=== PATIENT | female | born 1975 | race Caucasian/White ===

== ENCOUNTER 2016-10-12 18:20 | Emergency (ER) | payer MEDICARE, MEDICAID ==
[2016-10-12 18:33] VITALS: TEMP 98.1; O2SAT 97
[2016-10-12] MEDS ORDERED: predniSONE 20 MG TAB PO ONE (18:39)
[2016-10-12] MEDS ORDERED: KETOROLAC TROMETHAMINE INJ 30 MG/ML VIAL IM ONE (18:39)
--- NOTE | 2016-10-12 18:42 | ED.PDOC ---
History of Present Illness - General Chief Complaint: Headache Stated Complaint: headache Time Seen by Provider: 10/12/16 18:28 Source: patient Exam Limitations: no limitations - History of Present Illness Initial Comments: the patient is a 40-year-old female presenting to the emergency room secondary to headache primarily to the right side of her scalp and neck pain to the left side posteriorly extending down her trapezius muscle towards her left shoulder. Neither of these complaints are new. She has seen her primary care doctors and neurology for workup of them. She states that she does have a pinched nerve on the left there. She has Flexeril but has not taken it. She does have chronic daily headaches and takes Topamax. This headache seems more like a tension headache than her chronic migraines. No fevers. No altered mental status. No focal neurological changes. No problems with gait or strength or sensation. Timing/Duration: 24 hours Severity: moderate Improving Factors: other - massage Worsening Factors: nothing Associated Symptoms: headaches Allergies/Adverse Reactions: Allergies Meperidine [From Demerol HCl] Allergy (Unknown, Verified 12/11/15 04:03) cant take due to heartrate Chlorpheniramine [From Decongest] Adverse Reaction (Verified 12/11/15 04:03) Phenylpropanolamine [From Decongest] Adverse Reaction (Verified 12/11/15 04:03) narcotics Adverse Reaction (Uncoded 09/25/14 10:28) Other causes anxiety/panic attack Home Medications: Ambulatory Orders Cetirizine HCl [Zyrtec] 10 mg PO BEDTIME 04/29/14 Symbicort 160-4.5 Mcg/Act 2 puff INH BID 09/03/15 Albuterol Inhaler [Ventolin Hfa Inhaler] 108 mcg IN PRN 04/13/16 Fluticasone Propionate (Nasal) [Eql Fluticasone Propionat] 50 mcg NA DAILY 04/13 Levothyroxine Sodium [Synthroid] 0.112 mg PO 0700 04/13/16 Topiramate [Topamax] 50 mg PO DAILY 10/12/16 predniSONE [Prednisone] 20 mg PO DAILY #3 tab 10/12/16 Review of Systems - Review of Systems Constitutional: States: no symptoms reported EENTM: States: no symptoms reported Respiratory: States: no symptoms reported Cardiology: States: no symptoms reported Gastrointestinal/Abdominal: States: no symptoms reported Genitourinary: States: no symptoms reported Musculoskeletal: States: back pain, neck pain Skin: States: no symptoms reported Neurological: States: headache Endocrine: States: no symptoms reported All other Systems: No Change from Baseline Past Medical History (General) - Patient Medical History Hx Seizures: No Hx Stroke: No Hx Dementia: No Hx Asthma: No Hx of COPD: No Hx Cardiac Disorders: Yes Hx Congestive Heart Failure: No Hx Pacemaker: No Hx Hypertension: No Hx Thyroid Disease: Yes Hx Diabetes: No Hx Gastroesophageal Reflux: No Hx Renal Disease: No Hx Cancer: No Hx of HIV: No Hx Hepatitis C: No Hx MRSA: No - Vaccination History Hx Tetanus, Diphtheria Vaccination: No Hx Influenza Vaccination: No Hx Pneumococcal Vaccination: No - Social History Hx Tobacco Use: Yes - quit 2 years ago Hx Chewing Tobacco Use: No Hx Alcohol Use: No Hx Substance Use: No Hx Substance Use Treatment: No Hx Depression: No Hx Physical Abuse: No Hx Emotional Abuse: No Hx Suspected Abuse: No - Female History Patient is a Female of Child Bearing Age (10 -59 yrs old): Yes Patient : No - Triage Comment ED Triage Comment: has IUD Family Medical History - Family History Mother Living Status: Still Living Hx Family Hypertension: Yes Hx Family Cancer: Yes - breast Physical Exam - Physical Exam General Appearance: Alert, Comfortable, No apparent distress Eye Exam: bilateral normal Ears, Nose, Throat: normal ENT inspection, normal pharynx Neck: full range of motion, supple, other - the patient has diffuse muscle spasm and discomfort to palpation along the left side of her paraspinal muscles of the cervical spine. He does extend down the trapezius. There is no gross deformity. No bruising. range of motion is full. Respiratory: chest non-tender, lungs clear, normal breath sounds, no respiratory distress, no accessory muscle use Cardiovascular/Chest: normal peripheral pulses, regular rate, rhythm, no edema Peripheral Pulses: radial,right: 2+, radial,left: 2+, dorsalis pedis,right: 2+, dorsalis pedis,left: 2+ Gastrointestinal/Abdominal: non tender, soft Rectal Exam: deferred Back Exam: normal inspection Extremity: normal range of motion, non-tender, normal inspection, no pedal edema , normal capillary refill Neurologic: alert, normal mood/affect, oriented x 3, other - the right side of her scalp is diffusely uncomfortable to palpation. This is not just over the temporal arteries. There is no deformity or bruising. Skin Exam: normal color Comments: Vital Signs - 24 hr 10/12/16 18:29 Temperature 98.1 F Pulse Rate [ 92 H left arm] Respiratory 18 Rate Blood Pressure 184/80 [Left Arm] O2 Sat by Pulse 97 Oximetry Progress - Progress Progress: 10/12/16 18:43 the patient is a 40-year-old female presenting to the emergency room secondary to cervical myofascial syndrome as well as a tension headache. Blood pressure is moderately elevated likely reactive to pain. She does need to follow this at home over the coming weeks. She was given a dose of Toradol and oral prednisone here. When she gets home she needs to start taking her Flexeril. She needs to do stretches for her neck to reduce spasm. Topical heat and rub on agents such as icy hot and Biofreeze may help reduce discomfort as well. She needs to keep follow-up with her primary care doctor and neurologist. CT scan of the brain with contrast has been done in the past year already. She needs to bring a diary of her blood pressures into her primary care doctor for follow-up. return to the emergency room for acute worsening otherwise. She will be written for 3 days of oral prednisone as an outpatient. Departure - Departure Clinical Impression: Tension headache, Myofascial pain syndrome, cervical, Reactive hypertension Disposition: Discharge to Home or Self Care Condition: Fair Departure Forms: ED Discharge - Pt. Copy, Patient Portal Self Enrollment Instructions: DI for Myofascial Pain Syndrome, DI for Hormonal and Tension Headaches, High Blood Pressure Diet: low salt diet Activity: increase activity as tolerated Referrals: Fani Gallegos NP [Primary Care Provider] - 1-2 Weeks Prescriptions: predniSONE [Prednisone] 20 mg PO DAILY #3 tab Home Medications: Ambulatory Orders Cetirizine HCl [Zyrtec] 10 mg PO BEDTIME 04/29/14 Symbicort 160-4.5 Mcg/Act 2 puff INH BID 09/03/15 Albuterol Inhaler [Ventolin Hfa Inhaler] 108 mcg IN PRN 04/13/16 Fluticasone Propionate (Nasal) [Eql Fluticasone Propionat] 50 mcg NA DAILY 04/13 Levothyroxine Sodium [Synthroid] 0.112 mg PO 0700 04/13/16 Topiramate [Topamax] 50 mg PO DAILY 10/12/16 predniSONE [Prednisone] 20 mg PO DAILY #3 tab 10/12/16 Additional Instructions: the patient is a 40-year-old female presenting to the emergency room secondary to cervical myofascial syndrome as well as a tension headache. Blood pressure is moderately elevated likely reactive to pain. She does need to follow this at home over the coming weeks. She was given a dose of Toradol and oral prednisone here. When she gets home she needs to start taking her Flexeril. She needs to do stretches for her neck to reduce spasm. Topical heat and rub on agents such as icy hot and Biofreeze may help reduce discomfort as well. She needs to keep follow-up with her primary care doctor and neurologist. CT scan of the brain with contrast has been done in the past year already. She needs to bring a diary of her blood pressures into her primary care doctor for follow-up. return to the emergency room for acute worsening otherwise. She will be written for 3 days of oral prednisone as an outpatient.
[2016-10-12] MEDS ORDERED: PROMETHAZINE HCL 25 MG TAB PO ONE (18:55)
[2016-10-12] MEDS ORDERED: ACETAMINOPHEN-CAFF-BUTALBITAL 1 EA TAB PO SCH (19:00)
[2016-10-12 19:25] VITALS: BP 151/88
== END 2016-10-12 19:25 | disposition home or self-care (01) ==
LOC: ER 18:20
DX: G44.209 Tension-type headache, unspecified, not intractable (principal); I10 Essential (primary) hypertension; M79.1 Myalgia; Z79.899 Other long term (current) drug therapy; Z87.891 Personal history of nicotine dependence
CPT/HCPCS: J1885; J7512; Q0169

== ENCOUNTER → 2016-10-17 | Outpatient (CLI) | payer MEDICARE, MEDICAID ==
--- NOTE | 2016-10-17 14:37 | RAD ---
EXAM DESCRIPTION: Facial bone series. CLINICAL HISTORY: Facial pain status post trauma. COMPARISON: None. TECHNIQUE: 3 views were obtained and submitted for evaluation. FINDINGS: There is no fracture, dislocation, suspicious bone lesion, or radiopaque foreign body. The orbits are intact. The paranasal sinuses are well aerated. Sella appears unenlarged. Please note that CT offers a more sensitive imaging evaluation of the face. IMPRESSION: If there is clinical suspicion of a facial fracture CT is suggested. No gross abnormality on today's study. Electronically signed by: Rahat Hale MD 10/17/2016 14:35
== END ==
LOC: YCFC.O 13:08
PROVIDERS: ATTEND Nurse Practitioner Family
DX: J32.9 Chronic sinusitis, unspecified (principal)

== ENCOUNTER → 2016-11-09 | Outpatient (CLI) | payer MEDICARE, MEDICAID | LOC: YCFC.O 16:55 | PROVIDERS: ATTEND Nurse Practitioner Family | DX: E55.9 Vitamin D deficiency, unspecified (principal) ==

== ENCOUNTER 2016-12-18 22:24 | Emergency (ER) | payer MEDICARE, MEDICAID ==
[2016-12-18 22:42] VITALS: BP 152/81; TEMP 97.8
[2016-12-18] MEDS ORDERED: KETOROLAC TROMETHAMINE INJ 30 MG/ML VIAL IM ONE (22:48)
[2016-12-18] MEDS ORDERED: PROMETHAZINE HCL 25 MG TAB PO ONE (22:49)
--- NOTE | 2016-12-18 22:51 | ED.PDOC ---
History of Present Illness - General Chief Complaint: Headache Stated Complaint: headache Time Seen by Provider: 12/18/16 22:34 Source: patient Exam Limitations: no limitations - History of Present Illness Initial Comments: the patient is a 41-year-old female presenting secondary to recurrent headache. The patient has a history of recurrent migraine and tension-type headaches. She has had this latest headache for approximately 16 hours. No nausea or vomiting. She does have mild phono and photophobia. Headache is described as a tension band type headache starting at the occipital area wrapping around to the frontal area. No vision changes. No other neurological changes. No vomiting. Her routine [id number] medications have not helped. Previously in the past she has tolerated Toradol and Phenergan well to abort these headaches. This headache contains no new symptomatology. She does have routine follow-up for her headaches with neurology and her primary care doctor. Timing/Duration: 24 hours Quality: moderate, constant, pressure, throbbing Head Injury Location: frontal, occipital Recent Head Trauma: no recent headache/trauma, chronic headaches Improving Factors: medication Worsening Factors: other Associated Symptoms: fatigue Allergies/Adverse Reactions: Allergies Meperidine [From Demerol HCl] Allergy (Unknown, Verified 12/11/15 04:03) cant take due to heartrate Chlorpheniramine [From Decongest] Adverse Reaction (Verified 12/11/15 04:03) Phenylpropanolamine [From Decongest] Adverse Reaction (Verified 12/11/15 04:03) narcotics Adverse Reaction (Uncoded 09/25/14 10:28) Other causes anxiety/panic attack Home Medications: Ambulatory Orders Cetirizine HCl [Zyrtec] 10 mg PO BEDTIME 04/29/14 Symbicort 160-4.5 Mcg/Act 2 puff INH BID 09/03/15 Albuterol Inhaler [Ventolin Hfa Inhaler] 108 mcg IN PRN 04/13/16 Fluticasone Propionate (Nasal) [Eql Fluticasone Propionat] 50 mcg NA DAILY 04/13 Levothyroxine Sodium [Synthroid] 0.112 mg PO 0700 04/13/16 Topiramate [Topamax] 50 mg PO DAILY 10/12/16 Cyclobenzaprine HCl [Flexeril] 5 mg PO 12/18/16 Review of Systems - Review of Systems Constitutional: States: malaise EENTM: States: no symptoms reported Respiratory: States: no symptoms reported Cardiology: States: no symptoms reported Gastrointestinal/Abdominal: States: no symptoms reported Genitourinary: States: no symptoms reported Musculoskeletal: States: no symptoms reported Skin: States: no symptoms reported Neurological: States: headache Endocrine: States: no symptoms reported All other Systems: No Change from Baseline Past Medical History (General) - Patient Medical History Hx Seizures: No Hx Stroke: No Hx Dementia: No Hx Asthma: Yes Hx of COPD: No Hx Cardiac Disorders: Yes - irregular heartrate episodes Hx Congestive Heart Failure: No Hx Pacemaker: No Hx Hypertension: No Hx Thyroid Disease: Yes Hx Diabetes: No Hx Gastroesophageal Reflux: No Hx Renal Disease: No Hx Cancer: No Hx of HIV: No Hx Hepatitis C: No Hx MRSA: No - Vaccination History Hx Tetanus, Diphtheria Vaccination: No Hx Influenza Vaccination: No Hx Pneumococcal Vaccination: No - Social History Hx Tobacco Use: Yes - quit 2 years ago Hx Chewing Tobacco Use: No Hx Alcohol Use: No Hx Substance Use: No Hx Substance Use Treatment: No Hx Depression: No Hx Physical Abuse: No Hx Emotional Abuse: No Hx Suspected Abuse: No - Female History Patient is a Female of Child Bearing Age (10 -59 yrs old): No - tubal Patient : No Family Medical History - Family History Mother Living Status: Still Living Hx Family Hypertension: Yes Hx Family Cancer: Yes - breast Physical Exam - Physical Exam General Appearance: Alert, Comfortable, No apparent distress Eyes, Ears, Nose, Throat Exam: PERRL/EOMI, normal ENT inspection, TMs normal Neck: non-tender, full range of motion, supple Cardiovascular/Chest: normal peripheral pulses, regular rate, rhythm, no edema Respiratory: chest non-tender, lungs clear, normal breath sounds, no respiratory distress, no accessory muscle use Gastrointestinal/Abdominal: other - obese Back Exam: normal inspection, no CVA tenderness Extremity: normal range of motion, non-tender, normal inspection, no pedal edema , normal capillary refill 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 She needs to keep well hydrated. She was given a dose of Toradol and oral Phenergan here, which have worked for her previously. She needs to try to get some sleep. She needs to follow up with her primary care doctor later this week. ER warnings were given for any acute worsening. Departure - Departure Clinical Impression: Tension type headache Qualifiers: Headache chronicity pattern: acute headache Disposition: Discharge to Home or Self Care Condition: Fair Departure Forms: ED Discharge - Pt. Copy, Patient Portal Self Enrollment Instructions: DI for Hormonal and Tension Headaches Diet: regular diet Activity: increase activity as tolerated Referrals: Fani Gallegos NP [Primary Care Provider] - 1-2 Weeks Home Medications: Ambulatory Orders Cetirizine HCl [Zyrtec] 10 mg PO BEDTIME 04/29/14 Symbicort 160-4.5 Mcg/Act 2 puff INH BID 09/03/15 Albuterol Inhaler [Ventolin Hfa Inhaler] 108 mcg IN PRN 04/13/16 Fluticasone Propionate (Nasal) [Eql Fluticasone Propionat] 50 mcg NA DAILY 04/13 Levothyroxine Sodium [Synthroid] 0.112 mg PO 0700 04/13/16 Topiramate [Topamax] 50 mg PO DAILY 10/12/16 Cyclobenzaprine HCl [Flexeril] 5 mg PO 12/18/16 Additional Instructions: the patient is a 41-year-old female presenting with a tension-type headache. She needs to keep well hydrated. She was given a dose of Toradol and oral Phenergan here, which have worked for her previously. She needs to try to get some sleep. She needs to follow up with her primary care doctor later this week. ER warnings were given for any acute worsening.
== END 2016-12-18 23:17 | disposition home or self-care (01) ==
LOC: ER 22:24
DX: G44.209 Tension-type headache, unspecified, not intractable (principal); J45.909 Unspecified asthma, uncomplicated; I49.9 Cardiac arrhythmia, unspecified; E07.9 Disorder of thyroid, unspecified; Z79.899 Other long term (current) drug therapy; Z88.8 Allergy status to other drugs, medicaments and biological substances; Z87.891 Personal history of nicotine dependence
CPT/HCPCS: J1885; Q0169

== ENCOUNTER 2017-09-21 11:01 | Emergency (ER) | payer MEDICARE, MEDICAID ==
[2017-09-21] MEDS ORDERED: LACTATED RINGERS 1,000 ML IVS ONE (11:12)
[2017-09-21] MEDS ORDERED: ASPIRIN (CHEWABLE) 81 MG TAB PO ONE (11:12)
[2017-09-21 11:13] VITALS: TEMP 97.8; O2SAT 100
--- NOTE | 2017-09-21 11:42 | RAD ---
Study: Single Frontal View of the Chest. Indication:pain Comparison: November 24, 2015. Impression: Heart size normal. Lungs clear. No acute osseous abnormality. Electronically signed by: Yasir Byrd MD 09/21/2017 11:41 AM [facility]
--- NOTE | 2017-09-21 12:20 | ED.PDOC ---
History of Present Illness - General Chief Complaint: Chest Pain/ME Stated Complaint: Chest discomfort x 3 days Time Seen by Provider: 09/21/17 11:10 Source: patient Exam Limitations: no limitations - History of Present Illness Initial Comments: Brenda Kinney 41 y/o female came to emergency room with intermittent localized left sided chest pains lasting for 30 seconds to a minute for the last 3 days no SOB,no nausea ,no vomiting,no diaphoresis;has mild coughing symptoms just occurs spontaneously at rest or with activity. Timing/Duration: other - 3 days see hpi Severity/Quality: moderate Location: other - left side chest Chest Pain Radiation: no radiation Activities at Onset: other - see hpi Prior Chest Pain/Cardiac Workup: no prior chest pain, no prior cardiac workup Improving Factors: nothing Worsening Factors: nothing Nitro Today/Relief: 0.4 mg x 1, provided by ED Aspirin Treatment Today: 81 mg x 3, provided by ED Associated Symptoms: denies symptoms Allergies/Adverse Reactions: Allergies Meperidine [From Demerol HCl] Allergy (Unknown, Verified 09/21/17 11:14) cant take due to heartrate Chlorpheniramine [From Decongest] Adverse Reaction (Verified 09/21/17 11:14) Increased HR Phenylpropanolamine [From Decongest] Adverse Reaction (Verified 09/21/17 11:14) Increased HR narcotics Adverse Reaction (Uncoded 09/21/17 11:14) Other causes anxiety/panic attack Home Medications: Ambulatory Orders Cetirizine HCl [Zyrtec] 10 mg PO BEDTIME 04/29/14 Symbicort 160-4.5 Mcg/Act 2 puff INH BID 09/03/15 Albuterol Inhaler [Ventolin Hfa Inhaler] 108 mcg IN PRN 04/13/16 Fluticasone Propionate (Nasal) [Eql Fluticasone Propionat] 50 mcg NA DAILY 04/13 Levothyroxine Sodium [Synthroid] 0.112 mg PO 0700 04/13/16 Cyclobenzaprine HCl [Flexeril] 10 mg PO TID PRN 12/18/16 Ibuprofen [Motrin] 800 mg PO TID PRN 09/21/17 Topiramate [Trokendi Xr] 200 mg PO DAILY 09/21/17 Review of Systems - Review of Systems Constitutional: States: no symptoms reported, chills Respiratory: States: no symptoms reported Cardiology: States: see HPI, chest pain Genitourinary: States: no symptoms reported Skin: States: no symptoms reported Neurological: States: no symptoms reported All other Systems: Reviewed and Negative, No Change from Baseline Past Medical History (General) - Patient Medical History Hx Seizures: No Hx Stroke: No Hx Dementia: No Hx Asthma: Yes Hx of COPD: No Hx Cardiac Disorders: Yes - irregular heartrate episodes Hx Congestive Heart Failure: No Hx Pacemaker: No Hx Hypertension: No Hx Thyroid Disease: Yes Hx Diabetes: No Hx Gastroesophageal Reflux: No Hx Renal Disease: No Hx Cancer: No Hx of HIV: No Hx Hepatitis C: No Hx MRSA: No Surgical History: other - c section - Vaccination History Hx Tetanus, Diphtheria Vaccination: No Hx Influenza Vaccination: No Hx Pneumococcal Vaccination: No - Social History Hx Tobacco Use: Yes - Quit 2013 Hx Chewing Tobacco Use: No Hx Alcohol Use: No Hx Substance Use: No Hx Substance Use Treatment: No Hx Depression: No Hx Physical Abuse: No Hx Emotional Abuse: No Hx Suspected Abuse: No - Activities of Daily Living Patient Lives Alone: No - familt - Female History Patient is a Female of Child Bearing Age (10 -59 yrs old): Yes Patient : No - MIRENA-IUD Family Medical History - Family History Mother Living Status: Still Living Hx Family Hypertension: Yes - mom Hx Family Cancer: Yes - breast-Pagets Physical Exam - Physical Exam General Appearance: Alert, Comfortable, No apparent distress Eyes, Ears, Nose, Throat Exam: PERRL/EOMI, normal ENT inspection, pharynx normal Neck: non-tender, full range of motion, supple Respiratory: chest non-tender, lungs clear, normal breath sounds Cardiovascular/Chest: normal peripheral pulses, regular rate, rhythm, no murmur Peripheral Pulses: radial,right: 2+, radial,left: 2+ Gastrointestinal/Abdominal: normal bowel sounds, non tender, soft Extremity: normal range of motion, non-tender, normal inspection Neurologic: alert, oriented x 3 Skin Exam: normal color, warm/dry Lymphatic: no adenopathy Progress - Progress Progress: 09/21/17 12:23 Last Vital Signs Temp 97.8 F 09/21/17 11:08 Pulse 63 09/21/17 11:08 Resp 20 09/21/17 11:08 BP 167/96 09/21/17 11:08 Pulse Ox 100 09/21/17 11:08 - Results/Orders Results/Orders: Laboratory Tests 09/21/17 09/21/17 09/21/17 11:12 11:12 13:08 WBC 7.2 RBC 4.63 Hgb 13.5 Hct 40.6 MCV 87.8 MCH 29.1 MCHC 33.2 RDW 13.4 Plt Count 284 MPV 8.4 Absolute Neuts (auto) 4.10 Absolute Lymphs (auto) 2.40 Absolute Monos (auto) 0.40 Absolute Eos (auto) 0.20 Absolute Basos (auto) 0.00 Neutrophils % 56.8 Lymphocytes % 34.0 Monocytes % 6.1 Eosinophils % 2.4 Basophils % 0.7 PT 11.7 INR 1.040 PTT (SP) 31.2 D-Dimer, Quantitative < 200 Sodium 141 Potassium 3.9 Chloride 107 Carbon Dioxide 25 Anion Gap 12.9 BUN 18 Creatinine 0.87 BUN/Creatinine Ratio 20.7 H Random Glucose 102 Serum Osmolality 283.4 Calcium 9.0 Magnesium 1.9 Total Bilirubin 0.3 Direct Bilirubin < 0.1 Indirect Bilirubin 0.2 AST 13 ALT 15 Alkaline Phosphatase 72 Creatine Kinase 38 CK-MB (CK-2) 0.9 CK-MB (CK-2) % Not Reportable Troponin I < 0.02 < 0.02 Serum Total Protein 7.2 Albumin 3.8 - EKG/XRAY/CT EKG: Vladimir, Sinus Comments: Heart Rate 59;Low voltage QRS XRAY: chest - no acute abnormalities Departure - Departure Clinical Impression: Chest pain, atypical Time of Disposition: 14:17 Disposition: Discharge to Home or Self Care Condition: Good Departure Forms: ED Discharge - Pt. Copy, Patient Portal Self Enrollment Instructions: DI for Atypical Chest Pain Referrals: Fani Gallegos NP [Primary Care Provider] - 1-2 Weeks Home Medications: Ambulatory Orders Cetirizine HCl [Zyrtec] 10 mg PO BEDTIME 04/29/14 Symbicort 160-4.5 Mcg/Act 2 puff INH BID 09/03/15 Albuterol Inhaler [Ventolin Hfa Inhaler] 108 mcg IN PRN 04/13/16 Fluticasone Propionate (Nasal) [Eql Fluticasone Propionat] 50 mcg NA DAILY 04/13 Levothyroxine Sodium [Synthroid] 0.112 mg PO 0700 04/13/16 Cyclobenzaprine HCl [Flexeril] 10 mg PO TID PRN 12/18/16 Ibuprofen [Motrin] 800 mg PO TID PRN 09/21/17 Topiramate [Trokendi Xr] 200 mg PO DAILY 09/21/17 Additional Instructions: Follow up with primary Md Dr. Stanton 09/22/2017 call for your appointment:Return to emergency room as needed May take Ibuprofen 800 mg 3 x a day for pain as needed
[2017-09-21 14:35] VITALS: BP 134/63
== END 2017-09-21 14:35 | disposition home or self-care (01) ==
LOC: ER 11:01
DX: R07.89 Other chest pain (principal); Z87.891 Personal history of nicotine dependence; E07.9 Disorder of thyroid, unspecified
CPT/HCPCS: 36415; 71010; 80048; 80076; 82550; 82553; 84484; 85025; 85379; 85610; 85730; 93005; J7120

== ENCOUNTER → 2017-11-03 | Outpatient (CLI) | payer MEDICARE, MEDICAID ==
[~2017-11-03] MED LIST: ALBUTEROL SULFATE 2.5 MG/3 ML VIAL NEB ONE
== END ==
LOC: RESP 09:52
PROVIDERS: ATTEND Nurse Practitioner Family
DX: R06.02 Shortness of breath (principal)
CPT/HCPCS: 94060; J7611

== ENCOUNTER 2017-11-07 05:29 | Emergency (ER) | payer MEDICARE, MEDICAID ==
[2017-11-07 05:49] VITALS: BP 159/80; TEMP 101; O2SAT 97
--- NOTE | 2017-11-07 06:44 | ED.PDOC ---
History of Present Illness - General Chief Complaint: Fever Stated Complaint: fever, cough, headache Time Seen by Provider: 11/07/17 06:40 Source: patient Exam Limitations: no limitations - History of Present Illness Initial Comments: Brenda Issa 42 y/o female came to ER with dry cough and nose congestion for one week;then early this morning accompanied by fever and with headache,body aches during the coughing. episodes.Has history of asthma,migraines, hypothyroidism.No flu immunization .Denies exposure to someone with flu.No sob, no blurry vision,no nausea/vomiting. Timing/Duration: other - see hpi Severity: moderate Improving Factors: nothing Worsening Factors: nothing Associated Symptoms: other - see hpi Allergies/Adverse Reactions: Allergies Meperidine [From Demerol HCl] Allergy (Unknown, Verified 09/21/17 11:14) cant take due to heartrate Chlorpheniramine [From Decongest] Adverse Reaction (Verified 09/21/17 11:14) Increased HR Phenylpropanolamine [From Decongest] Adverse Reaction (Verified 09/21/17 11:14) Increased HR narcotics Adverse Reaction (Uncoded 09/21/17 11:14) Other causes anxiety/panic attack Home Medications: Ambulatory Orders Cetirizine HCl [Zyrtec] 10 mg PO BEDTIME 04/29/14 Symbicort 160-4.5 Mcg/Act 2 puff INH BID 09/03/15 Albuterol Inhaler [Ventolin Hfa Inhaler] 108 mcg IN PRN 04/13/16 Fluticasone Propionate (Nasal) [Eql Fluticasone Propionat] 50 mcg NA DAILY 04/13 Levothyroxine Sodium [Synthroid] 0.112 mg PO 0700 04/13/16 Cyclobenzaprine HCl [Flexeril] 10 mg PO TID PRN 12/18/16 Ibuprofen [Motrin] 800 mg PO TID PRN 09/21/17 Topiramate [Trokendi Xr] 200 mg PO DAILY 09/21/17 Review of Systems - Review of Systems Constitutional: States: see HPI, fever EENTM: States: see HPI, nose congestion Respiratory: States: see HPI, cough - dry Cardiology: States: no symptoms reported Gastrointestinal/Abdominal: States: no symptoms reported Genitourinary: States: no symptoms reported Neurological: States: headache - history of migraines Past Medical History (General) - Patient Medical History Hx Seizures: No Hx Stroke: No Hx Dementia: No Hx Asthma: Yes Hx of COPD: No Hx Cardiac Disorders: Yes - irregular heartrate episodes Hx Congestive Heart Failure: No Hx Pacemaker: No Hx Hypertension: No Hx Thyroid Disease: Yes Hx Diabetes: No Hx Gastroesophageal Reflux: No Hx Renal Disease: No Hx Cancer: No Hx of HIV: No Hx Hepatitis C: No Hx MRSA: No Surgical History: other - - Vaccination History Hx Tetanus, Diphtheria Vaccination: No Hx Influenza Vaccination: No Hx Pneumococcal Vaccination: No - Social History Hx Tobacco Use: Yes - Quit 2013 Hx Chewing Tobacco Use: No Hx Alcohol Use: No Hx Substance Use: No Hx Substance Use Treatment: No Hx Depression: No Hx Physical Abuse: No Hx Emotional Abuse: No Hx Suspected Abuse: No - Female History Patient is a Female of Child Bearing Age (10 -59 yrs old): Yes Hx Last Menstrual Period: 11/07/17 - currently on her periods Patient : No - MIRENA-IUD Family Medical History - Family History Mother Living Status: Still Living Hx Family Hypertension: Yes - mom Hx Family Cancer: Yes - breast-Pagets Physical Exam - Physical Exam General Appearance: Alert, Comfortable, No apparent distress Eye Exam: bilateral normal Ears, Nose, Throat: hearing grossly normal, normal ENT inspection, normal pharynx, nasal congestion Neck: non-tender, full range of motion, supple Respiratory: chest non-tender, lungs clear, normal breath sounds, no respiratory distress Cardiovascular/Chest: normal peripheral pulses, regular rate, rhythm, no murmur Peripheral Pulses: radial,right: 2+, radial,left: 2+ Gastrointestinal/Abdominal: non tender, soft, no organomegaly Back Exam: no vertebral tenderness, CVA tenderness (R) Extremity: no pedal edema, no calf tenderness Neurologic: alert, oriented x 3 Skin Exam: normal color, warm/dry Progress - Progress Progress: 11/07/17 06:48 Last Vital Signs Temp 101.0 F H 11/07/17 05:35 Pulse 81 11/07/17 05:35 Resp 18 11/07/17 05:41 BP 159/80 11/07/17 05:35 Pulse Ox 97 11/07/17 05:35 Explained that we ran out of Flu swab and recommended Tamiflu since she had all symptoms of ongoing flu illness all over declined to get it without positive flu result wants something for her headache when coughing.She stated she will see her Md once her clinic opens this am. 11/07/17 06:51 Departure - Departure Clinical Impression: Flu-like symptoms Headache Qualifiers: Headache type: unspecified Headache chronicity pattern: unspecified pattern Intractability: not intractable Qualified Code(s): R51 - Headache Time of Disposition: 06:55 Disposition: Discharge to Home or Self Care Condition: Good Departure Forms: ED Discharge - Pt. Copy, Patient Portal Self Enrollment Instructions: Influenza (Alternative Therapy), Influenza Referrals: Fani Gallegos NP [Primary Care Provider] - 1-2 Weeks Home Medications: Ambulatory Orders Cetirizine HCl [Zyrtec] 10 mg PO BEDTIME 04/29/14 Symbicort 160-4.5 Mcg/Act 2 puff INH BID 09/03/15 Albuterol Inhaler [Ventolin Hfa Inhaler] 108 mcg IN PRN 04/13/16 Fluticasone Propionate (Nasal) [Eql Fluticasone Propionat] 50 mcg NA DAILY 04/13 Levothyroxine Sodium [Synthroid] 0.112 mg PO 0700 04/13/16 Cyclobenzaprine HCl [Flexeril] 10 mg PO TID PRN 12/18/16 Ibuprofen [Motrin] 800 mg PO TID PRN 09/21/17 Topiramate [Trokendi Xr] 200 mg PO DAILY 09/21/17 Additional Instructions: Call up your primary Md this am 11/07/2017
[2017-11-07] MEDS ORDERED: PROMETHAZINE HCL INJ 25 MG/ML VIAL IM ONE (06:52)
[2017-11-07] MEDS ORDERED: KETOROLAC TROMETHAMINE INJ 30 MG/ML VIAL IM ONE (06:52)
== END 2017-11-07 07:30 | disposition home or self-care (01) ==
LOC: ER 05:29
DX: R51 Headache (principal); R50.9 Fever, unspecified; R05 Cough; E07.9 Disorder of thyroid, unspecified; Z79.899 Other long term (current) drug therapy; Z87.891 Personal history of nicotine dependence
CPT/HCPCS: 87804; J1885; J2550

== ENCOUNTER → 2017-11-20 | Outpatient (CLI) | payer MEDICARE, MEDICAID ==
--- NOTE | 2017-11-20 15:41 | RAD ---
EXAM DESCRIPTION: Chest 2 views CLINICAL HISTORY: ASTHMA COMPARISON: September 21, 2017 TECHNIQUE: PA and lateral views of the chest FINDINGS: Lungs are stably aerated bilaterally. No consolidation nor pneumothorax nor pleural effusion in either lung. Cardiomediastinal contours are unremarkable in appearance. Thoracic bony structures grossly intact. IMPRESSION: No acute cardiopulmonary process. Electronically signed by: Dom Dunn MD 11/20/2017 3:40 PM QUALITY PROCESS AUDITOR
--- NOTE | 2017-11-24 17:03 | MAM ---
EXAM DESCRIPTION: 3D Screening BILATERAL : Digital Mammography. CLINICAL HISTORY: 42 years Female SCREENING . No complaints. Mother with breast cancer. Postmenopausal. No HRT. COMPARISON: Baseline study at this facility. No prior reports available. TECHNIQUE: Bilateral CC and MLO projection full-field images, 3-D tomosynthesis digital mammographic technique. Also bilateral synthesized CC/ MLO full-field images. CAD not utilized. FINDINGS: The breast parenchymal density pattern is: Heterogeneously dense breast tissue, which may obscure small masses. No skin thickening or nipple retraction bilateral axillary lymph nodes. No focal, stellate mass or density, focal asymmetry , and no suspicious microcalcifications bilaterally. IMPRESSION: BI-RADS CATEGORY: 2 - BENIGN FINDINGS. FOLLOW UP: Routine digital bilateral screening, one year interval from October 2017. Written communication explaining the IMPRESSION and follow-up, will be mailed to the patient and referring health care provider. According to the [employer], yearly mammograms are recommended starting at age 40 and continuing as long as a woman is in good health. Any breast change noted on a breast self-exam should be reported promptly to the patient's healthcare provider. Breast MRI is recommended for women with an approximately 20-25% or greater lifetime risk of breast cancer, including women with a strong family history of breast or ovarian cancer and women who have been treated for Hodgkin's disease. A negative mammographic report should not delay tissue diagnosis in patients with significant clinical history or physical findings. Extremely dense breast tissue limits the sensitivity of digital mammography. Electronically signed by: Mitchell Tenorio MD 11/24/2017 5:03 PM DONOR SERVICES COORDINATOR
== END ==
LOC: MAMMO 14:00
PROVIDERS: ATTEND Nurse Practitioner Family
DX: Z12.31 Encounter for screening mammogram for malignant neoplasm of breast (principal); J45.909 Unspecified asthma, uncomplicated